=== PATIENT | male | born 1965 | race Caucasian/White ===

== ENCOUNTER 2019-12-03 23:57 | Emergency (ER) | payer OTHER, MEDICAID ==
[~2019-12-03] VITALS: Ht 190.5 cm; Wt 136.1 kg
[~2019-12-03 23:57] MED LIST: GABA600T PO; SERT100T PO; ZOLP5TAB2 PO; [UNRECOGNIZED DRUG - CODE] PO
[2019-12-04] VITALS: BP_SYST 151
[2019-12-04] MEDS ORDERED: TOBRAMYCIN/DEXAMETHASONE Non-Formulary EYE DROPS.SUSP 2.5 ML OP ONE (02:00)
[2019-12-04 02:20] VITALS: BP_SYST 151
== END 2019-12-04 02:20 | disposition home or self-care (01) ==
LOC: SED 23:57
DX: H10.9 Unspecified conjunctivitis (principal); Z79.899 Other long term (current) drug therapy
CPT/HCPCS: 99283

== ENCOUNTER 2020-10-09 14:19 | Emergency (ER) | payer OTHER, MEDICAID, SELFPAY ==
[~2020-10-09] VITALS: Ht 190.5 cm; Wt 141.1 kg
[2020-10-09 14:25] VITALS: BP_SYST 121
[2020-10-09 15:11] LABS: BASOPHILS % (AUTO) 0.2 % (0.0-2.0); EOSINOPHILS # (AUTO) 0.2 K/uL (0.0-0.4); EOSINOPHILS % (AUTO) 2.9 % (0.0-4.0); HEMATOCRIT 36.2 % (36-54); LYMPHOCYTES % (AUTO) 35.4 % (20.5-51.5); MEAN CORPUSCULAR HEMOGLOBIN 29 pg (27-31); MEAN CORPUSCULAR HGB CONC 33 % (32-36); MEAN CORPUSCULAR VOLUME 86 fL (79.0-98.0); MONOCYTES # (AUTO) 0.6 K/uL (0.0-1.0); MONOCYTES % (AUTO) 9.9 % (1.7-9.3); NEUTROPHILS # (AUTO) 2.9 K/uL (1.8-7.7); NEUTROPHILS % (AUTO) 51.6 % (40.0-70.0); PLATELET COUNT (AUTO) 123 K/uL (130-430); RED CELL DISTRIBUTION WIDTH 14.4 % (9.0-15.0); WHITE BLOOD COUNT (AUTO) 5.7 K/uL (4.8-10.8)
[2020-10-09 15:29] LABS: ANION GAP 8 (5-15); CALCIUM 8.8 mg/dL (8.4-11.0); CHLORIDE 103 mmol/L (98-107); CREATININE 1.52 mg/dL (0.55-1.30); GLUCOSE 89 mg/dL (70-99); POTASSIUM 4.3 mmol/L (3.5-5.1); SODIUM SERUM 136 mmol/L (136-145); UREA NITROGEN, BLOOD 13 mg/dL (8-21)
[2020-10-09 15:44] LABS: ALANINE AMINOTRANSFERASE 28 U/L (12-78); ALBUMIN 3.5 g/dL (3.4-4.8); ASPARTATE AMINOTRANSFERASE 16 U/L (10-37); THYROID STIMULATING HORMONE 1.94 uIu/mL (0.36-3.74); TOTAL BILIRUBIN 0.2 mg/dL (0.0-1.0)
[2020-10-09 15:45] LABS: GFR AFRICAN AMERICAN 61 mL/min (>90)
[2020-10-09 16:50] LABS: BILIRUBIN,URINE NEGATIVE (NEGATIVE); BLOOD, URINE NEGATIVE (NEGATIVE); CLARITY/URINE CLEAR (CLEAR); COLOR,URINE YELLOW (YELLOW); GLUCOSE,URINE NEGATIVE (NEGATIVE); KETONES,URINE NEGATIVE (NEGATIVE); LEUKOCYTE ESTERASE ,URINE NEGATIVE (NEGATIVE); NITRITE, URINE NEGATIVE (NEGATIVE); PROTEIN URINE NEGATIVE (NEGATIVE); UROBILINOGEN,URINE 0.2 (0.2-1.0)
[2020-10-09] MEDS ORDERED: MECL-160 PO (17:08)
[2020-10-09 17:40] VITALS: BP_SYST 122
== END 2020-10-09 17:41 | disposition home or self-care (01) ==
LOC: SED 14:19
DX: H81.10 Benign paroxysmal vertigo, unspecified ear (principal); Z79.899 Other long term (current) drug therapy; Z20.822 Contact with and (suspected) exposure to COVID-19
CPT/HCPCS: 36415; 70450-TC; 71045; 76376; 80053; 81003; 82962; 84443; 84484; 85025; 93005; 99285

== ENCOUNTER 2020-12-22 00:22 | Emergency (ER) | payer OTHER, MEDICAID, SELFPAY ==
[~2020-12-22] VITALS: Ht 190.5 cm; Wt 131.5 kg
[~2020-12-22 00:22] MED LIST changes: +MECL-160 PO
[2020-12-22 00:30] VITALS: BP_SYST 139
[2020-12-22] MEDS ORDERED: AMOX-426 PO (02:44)
[2020-12-22] MEDS ORDERED: IBUP-1969 PO (02:44)
[2020-12-22] MEDS ORDERED: AMOXICILLIN/CLAVULANATE POTASSIUM 875 MG TABLET PO ONE (02:45)
[2020-12-22] MEDS ORDERED: IBUPROFEN 600 MG TABLET PO ONE (02:45)
[2020-12-22 03:25] VITALS: BP_SYST 140
== END 2020-12-22 03:25 | disposition home or self-care (01) ==
LOC: SED 00:22
DX: H66.92 Otitis media, unspecified, left ear (principal); Z79.899 Other long term (current) drug therapy
CPT/HCPCS: 99283

== ENCOUNTER 2021-08-16 08:42 | Emergency (ER) | payer OTHER, MEDICAID ==
[~2021-08-16] VITALS: Ht 190.5 cm; Wt 113.4 kg
[~2021-08-16 08:42] MED LIST changes: +AMOX-426 PO; +IBUP-1969 PO
[2021-08-16 08:51] VITALS: BP_SYST 122
[2021-08-16 10:20] LABS: BASOPHILS % (AUTO) 0.3 % (0.0-2.0); EOSINOPHILS # (AUTO) 0.2 K/uL (0.0-0.4); EOSINOPHILS % (AUTO) 2.7 % (0.0-4.0); HEMATOCRIT 41.2 % (36-54); LYMPHOCYTES # (AUTO) 2.8 K/uL (1.0-5.5); MEAN CORPUSCULAR HEMOGLOBIN 30 pg (27-31); MEAN CORPUSCULAR HGB CONC 34 % (32-36); MEAN CORPUSCULAR VOLUME 88 fL (79.0-98.0); MONOCYTES # (AUTO) 0.5 K/uL (0.0-1.0); NEUTROPHILS # (AUTO) 3.4 K/uL (1.8-7.7); PLATELET COUNT (AUTO) 132 K/uL (130-430); RED BLOOD CELL COUNT(AUTO) 4.67 MIL/uL (4.2-6.2); RED CELL DISTRIBUTION WIDTH 12.9 % (9.0-15.0); WHITE BLOOD COUNT (AUTO) 6.9 K/uL (4.8-10.8)
[2021-08-16 10:33] LABS: ANION GAP 10 (5-15); CALCIUM 9.3 mg/dL (8.4-11.0); CHLORIDE 101 mmol/L (98-107); CREATININE 1.39 mg/dL (0.55-1.30); GLUCOSE 76 mg/dL (70-99); POTASSIUM 3.8 mmol/L (3.5-5.1); SODIUM SERUM 136 mmol/L (136-145); UREA NITROGEN, BLOOD 7 mg/dL (8-21)
[2021-08-16 10:43] LABS: GFR AFRICAN AMERICAN 67 mL/min (>90)
[2021-08-16 10:47] LABS: ALANINE AMINOTRANSFERASE 20 U/L (12-78); ALBUMIN 3.9 g/dL (3.4-4.8); AMYLASE 50 U/L (0-100); ASPARTATE AMINOTRANSFERASE 15 U/L (10-37); LACTATE DEHYDROGENASE 185 U/L (85-227); LIPASE 196 U/L (73-393); TOTAL BILIRUBIN 0.6 mg/dL (0.0-1.0)
[2021-08-16 10:55] LABS: C-REACTIVE PROTEIN QUANT < 0.2 mg/dL (0-0.5)
[2021-08-16] MEDS ORDERED: ONDA-8 TL (11:12)
[2021-08-16] MEDS ORDERED: TRAM50TA2 PO (11:12)
[2021-08-16] MEDS ORDERED: IBUP-1971 PO (11:12)
[2021-08-16 12:15] VITALS: BP_SYST 176
== END 2021-08-16 12:15 | disposition home or self-care (01) ==
LOC: SED 08:42
DX: R10.33 Periumbilical pain (principal)
CPT/HCPCS: 36415; 76376; 80053; 81002; 82150; 83605; 83615; 83690; 85025; 86140; 99284

== ENCOUNTER 2022-08-01 21:15 | Inpatient (IN) | payer OTHER, MEDICAID ==
[~2022-08-01] VITALS: Ht 190.5 cm; Wt 131.5 kg
[~2022-08-01 21:15] MED LIST changes: +IBUP-1971 PO; +ONDA-8 TL; +TRAM50TA2 PO
[2022-08-01 21:40] VITALS: BP_SYST 160
[2022-08-01] MEDS ORDERED: MAG HYDROX/AL HYDROX/SIMETH 30 ML, DICYCLOMINE HCL 20 MG, LIDOCAINE VISCOUS 2% 15ML (PO... PO ONE ×3 (22:15)
[2022-08-01] MEDS ORDERED: NACL 0.9% 1,000 ML IV ONE (22:15)
[2022-08-01] MEDS ORDERED: ONDANSETRON HCL 4 MG/2 ML VIAL IVP ONE (22:15)
[2022-08-01] MEDS ORDERED: MORPHINE 4 MG INJ. 4 MG/ML VIAL IVP ONE (22:15)
[2022-08-01 22:21] LABS: BILIRUBIN,URINE NEGATIVE (NEGATIVE); BLOOD, URINE NEGATIVE (NEGATIVE); CLARITY/URINE CLEAR (CLEAR); COLOR,URINE YELLOW (YELLOW); GLUCOSE,URINE NEGATIVE (NEGATIVE); KETONES,URINE NEGATIVE (NEGATIVE); LEUKOCYTE ESTERASE ,URINE NEGATIVE (NEGATIVE); NITRITE, URINE NEGATIVE (NEGATIVE); PROTEIN URINE NEGATIVE (NEGATIVE); UROBILINOGEN,URINE 0.2 (0.2-1.0)
[2022-08-01 22:32] LABS: BASOPHILS # (AUTO) 0.1 K/uL (0.0-0.2); BASOPHILS % (AUTO) 0.6 % (0.0-2.0); EOSINOPHILS # (AUTO) 0.4 K/uL (0.0-0.4); EOSINOPHILS % (AUTO) 4.1 % (0.0-4.0); HEMATOCRIT 36.6 % (36-54); HEMOGLOBIN 12.6 g/dL (14.0-18.0); LYMPHOCYTES # (AUTO) 1.6 K/uL (1.0-5.5); LYMPHOCYTES % (AUTO) 16.9 % (20.5-51.5); MEAN CORPUSCULAR HEMOGLOBIN 30 pg (27-31); MEAN CORPUSCULAR HGB CONC 35 % (32-36); MEAN CORPUSCULAR VOLUME 88 fL (79.0-98.0); MONOCYTES # (AUTO) 0.7 K/uL (0.0-1.0); MONOCYTES % (AUTO) 7.9 % (1.7-9.3); NEUTROPHILS # (AUTO) 6.5 K/uL (1.8-7.7); NEUTROPHILS % (AUTO) 70.5 % (40.0-70.0); PLATELET COUNT (AUTO) 145 K/uL (130-430); RED BLOOD CELL COUNT(AUTO) 4.18 MIL/uL (4.2-6.2); RED CELL DISTRIBUTION WIDTH 13.6 % (9.0-15.0); WHITE BLOOD COUNT (AUTO) 9.2 K/uL (4.8-10.8)
[2022-08-01 22:50] LABS: CALCIUM 8.3 mg/dL (8.4-11.0); CREATININE 1.42 mg/dL (0.55-1.30)
[2022-08-01 22:55] LABS: ALBUMIN 3.3 g/dL (3.4-4.8); TOTAL BILIRUBIN 0.3 mg/dL (0.0-1.0)
[2022-08-02] MEDS ORDERED: HYDROcodone/ACETAMIN 5-325 MG TAB (NORCO/ VICODIN) PO ONE
[2022-08-02] MEDS ORDERED: cefTRIAXone 1 GM in D5W 50 ML IV ONE (01:00)
[2022-08-02] MEDS ORDERED: NACL 0.9% 1,000 ML IV ONE (01:15)
[2022-08-02] MEDS ORDERED: ONDANSETRON HCL 4 MG/2 ML VIAL IVP PRN (01:15)
[2022-08-02] MEDS ORDERED: KETOROLAC TROMETHAMINE 15 MG VIAL IVP PRN (01:15)
[2022-08-02] MEDS ORDERED: BUPR300T55 PO (01:42)
[2022-08-02] MEDS ORDERED: PRO20 PO (01:42)
[2022-08-02] MEDS ORDERED: cefTRIAXone 1 GM VIAL ONE (02:37)
[2022-08-02 02:53] VITALS: BP_SYST 148
[2022-08-02 04:09] VITALS: BP_SYST 148
[2022-08-02 08:00] VITALS: BP_SYST 135
[2022-08-02] MEDS: PIPERACILLIN/TAZO 3.375 GM in NS 50 ML IV SCH (08:58)
[2022-08-02] MEDS ORDERED: buPROPion HCL 75 MG TABLET PO SCH (12:15)
[2022-08-02] MEDS: GABAPENTIN 300 MG CAPSULE PO SCH ×4 (12:15→21:55)
[2022-08-02] MEDS ORDERED: SERTRALINE HCL 50 MG TABLET PO SCH (12:15)
[2022-08-02] MEDS ORDERED: buPROPion HCL 150 MG XL TAB PO SCH (12:15)
[2022-08-02 16:00] VITALS: BP_SYST 139
[2022-08-02] MEDS: NACL 0.9% 1,000 ML IV SCH ×2 (17:16→21:13)
[2022-08-02 19:00] VITALS: BP_SYST 139
[2022-08-02 20:00] VITALS: BP_SYST 137
[2022-08-02] MEDS ORDERED: MELATONIN 5 MG TABLET PO PRN (20:45)
[2022-08-02] MEDS ORDERED: ZOLPIDEM TARTRATE 5 MG TABLET PO SCH (21:00)
[2022-08-02 21:24] LABS: BASOPHILS % (AUTO) 0.6 % (0.0-2.0); EOSINOPHILS # (AUTO) 0.3 K/uL (0.0-0.4); EOSINOPHILS % (AUTO) 3.8 % (0.0-4.0); HEMATOCRIT 35.9 % (36-54); HEMOGLOBIN 12.5 g/dL (14.0-18.0); LYMPHOCYTES # (AUTO) 1.7 K/uL (1.0-5.5); LYMPHOCYTES % (AUTO) 21.6 % (20.5-51.5); MEAN CORPUSCULAR HEMOGLOBIN 30 pg (27-31); MEAN CORPUSCULAR HGB CONC 35 % (32-36); MEAN CORPUSCULAR VOLUME 87 fL (79.0-98.0); MONOCYTES # (AUTO) 0.7 K/uL (0.0-1.0); MONOCYTES % (AUTO) 8.8 % (1.7-9.3); NEUTROPHILS # (AUTO) 5.1 K/uL (1.8-7.7); NEUTROPHILS % (AUTO) 65.2 % (40.0-70.0); PLATELET COUNT (AUTO) 128 K/uL (130-430); RED BLOOD CELL COUNT(AUTO) 4.13 MIL/uL (4.2-6.2); RED CELL DISTRIBUTION WIDTH 13.4 % (9.0-15.0); WHITE BLOOD COUNT (AUTO) 7.9 K/uL (4.8-10.8)
[2022-08-02 21:43] LABS: ALBUMIN 3.2 g/dL (3.4-4.8); CALCIUM 8.3 mg/dL (8.4-11.0); CREATININE 1.36 mg/dL (0.55-1.30); TOTAL BILIRUBIN 0.7 mg/dL (0.0-1.0)
[2022-08-02] MEDS: traZODone HCL 50 MG TABLET (DESYREL) PO SCH (21:55)
[2022-08-03] VITALS (8 sets, daily range): BP systolic 113–133
[2022-08-03 04:43] LABS: BASOPHILS % (AUTO) 0.4 % (0.0-2.0); EOSINOPHILS # (AUTO) 0.3 K/uL (0.0-0.4); EOSINOPHILS % (AUTO) 3.7 % (0.0-4.0); HEMATOCRIT 35.7 % (36-54); HEMOGLOBIN 12.1 g/dL (14.0-18.0); LYMPHOCYTES # (AUTO) 1.3 K/uL (1.0-5.5); LYMPHOCYTES % (AUTO) 19.5 % (20.5-51.5); MEAN CORPUSCULAR HEMOGLOBIN 30 pg (27-31); MEAN CORPUSCULAR HGB CONC 34 % (32-36); MEAN CORPUSCULAR VOLUME 88 fL (79.0-98.0); MONOCYTES # (AUTO) 0.7 K/uL (0.0-1.0); MONOCYTES % (AUTO) 9.6 % (1.7-9.3); NEUTROPHILS # (AUTO) 4.6 K/uL (1.8-7.7); NEUTROPHILS % (AUTO) 66.8 % (40.0-70.0); PLATELET COUNT (AUTO) 123 K/uL (130-430); RED BLOOD CELL COUNT(AUTO) 4.06 MIL/uL (4.2-6.2); RED CELL DISTRIBUTION WIDTH 13.5 % (9.0-15.0); WHITE BLOOD COUNT (AUTO) 6.8 K/uL (4.8-10.8)
[2022-08-03 05:12] LABS: ALBUMIN 3.1 g/dL (3.4-4.8); CALCIUM 8.1 mg/dL (8.4-11.0); CREATININE 1.37 mg/dL (0.55-1.30); TOTAL BILIRUBIN 0.7 mg/dL (0.0-1.0)
[2022-08-03 05:21] LABS: PROTHROMBIN TIME 10.2 SECS (9.5-12.5)
[2022-08-03] MEDS ORDERED: MELATONIN 5 MG TABLET PO PRN (07:34)
[2022-08-03] MEDS: GABAPENTIN 300 MG CAPSULE PO SCH ×3 (09:00→17:00)
[2022-08-03] MEDS: FLUoxetine HCL 20 MG CAPSULE (PROzac) PO SCH (09:00)
[2022-08-03] MEDS: buPROPion HCL 150 MG XL TAB PO SCH (09:00)
[2022-08-03] MEDS: NACL 0.9% 1,000 ML IV SCH ×2 (09:24→21:24)
[2022-08-03] MEDS: PIPERACILLIN/TAZO 3.375 GM in NS 50 ML IV SCH (09:24)
[2022-08-03] MEDS: PIPERACILLIN/TAZO 3.375/DEX-IS 50 ML IV SCH ×2 (15:11→21:23)
[2022-08-03] MEDS ORDERED: ONDANSETRON HCL 4 MG/2 ML VIAL ONE (18:27)
[2022-08-03] MEDS ORDERED: HYDROmorphone 2 MG/ML VIAL ONE (18:27)
[2022-08-03] MEDS ORDERED: MIDAZOLAM HCL 2 MG/2 ML VIAL (VERSED) ONE (18:27)
[2022-08-03] MEDS ORDERED: GLYCOPYRROLATE 0.2 MG/ML VIAL ONE (18:27)
[2022-08-03] MEDS ORDERED: SEVOFLURANE 15 MIN GAS INH ONE (18:27)
[2022-08-03] MEDS ORDERED: ROCURONIUM BROMIDE 10 MG/ML (ZEMURON) ONE (18:27)
[2022-08-03] MEDS ORDERED: NEOSTIGMINE METHYLSULFATE 1 MG/ML, 10 ML VIAL ONE (18:27)
[2022-08-03] MEDS ORDERED: PROPOFOL 200MG/ 20ML VIAL (DIPRIVAN) IV ONE (18:27)
[2022-08-03] MEDS ORDERED: DEXAMETHASONE SOD PHOSPHATE 4 MG/ML VIAL ONE (18:27)
[2022-08-03] MEDS ORDERED: METOCLOPRAMIDE HCL 10 MG/2 ML VIAL ONE (18:27)
[2022-08-03] MEDS ORDERED: NS IRRIG SOLN 1000 ML IR ONE (18:27)
[2022-08-03] MEDS ORDERED: LR 1,000 ML IV.SOLN IV ONE (18:27)
[2022-08-03] MEDS ORDERED: HYDROmorphone 1 MG/ML INJ. CARTRIDGE IVP PRN ×2 (18:30→19:45)
[2022-08-03] MEDS ORDERED: HYDROcodone/ACETAMIN 5-325 MG TAB (NORCO/ VICODIN) PO PRN (18:30)
[2022-08-03] MEDS ORDERED: NALOXONE HCL 0.4 MG/ML AMP (NARCAN) IVP PRN (19:45)
[2022-08-03] MEDS ORDERED: ONDANSETRON HCL 4 MG/2 ML VIAL IVP PRN (19:45)
[2022-08-03] MEDS: traZODone HCL 50 MG TABLET (DESYREL) PO SCH (21:00)
[2022-08-04 00:01] VITALS: BP_SYST 121
[2022-08-04] MEDS: NACL 0.9% 1,000 ML IV SCH (02:41)
[2022-08-04] MEDS: PIPERACILLIN/TAZO 3.375/DEX-IS 50 ML IV SCH ×3 (02:44→15:00)
[2022-08-04 08:00] VITALS: BP_SYST 139
[2022-08-04] MEDS ORDERED: HYDR-3917 PO (08:11)
[2022-08-04] MEDS: buPROPion HCL 150 MG XL TAB PO SCH (09:16)
[2022-08-04] MEDS: GABAPENTIN 300 MG CAPSULE PO SCH ×2 (09:16→13:00)
[2022-08-04] MEDS: FLUoxetine HCL 20 MG CAPSULE (PROzac) PO SCH (09:16)
[2022-08-04 11:33] VITALS: BP_SYST 137
[2022-08-04 16:39] VITALS: BP_SYST 130
== END 2022-08-04 17:30 | disposition home health service (06) | DRG 417 ==
LOC: SED 21:15 → SMU 08-02 01:13
PROVIDERS: ADMIT Family Medicine; ATTEND Family Medicine
PROC: 5A09357 Assistance with Respiratory Ventilation, Less than 24 Consecutive Hours, Continuous Positive Airway Pressure (ICD-10-PCS; 2022-08-02)
PROC: 0DNU4ZZ Release Omentum, Percutaneous Endoscopic Approach (ICD-10-PCS; 2022-08-03)
PROC: 5A09457 Assistance with Respiratory Ventilation, 24-96 Consecutive Hours, Continuous Positive Airway Pressure (ICD-10-PCS; 2022-08-03)
PROC: 0FT44ZZ Resection of Gallbladder, Percutaneous Endoscopic Approach (ICD-10-PCS; principal; 2022-08-03 18:28)
DX: K80.00 Calculus of gallbladder with acute cholecystitis without obstruction (principal); K85.90 Acute pancreatitis without necrosis or infection, unspecified; N17.0 Acute kidney failure with tubular necrosis; F32.9 Major depressive disorder, single episode, unspecified; E66.01 Morbid (severe) obesity due to excess calories; F41.9 Anxiety disorder, unspecified; Z60.2 Problems related to living alone; N18.9 Chronic kidney disease, unspecified; Z20.822 Contact with and (suspected) exposure to COVID-19; K66.0 Peritoneal adhesions (postprocedural) (postinfection); G47.33 Obstructive sleep apnea (adult) (pediatric); Z68.36 Body mass index [BMI] 36.0-36.9, adult; Z79.899 Other long term (current) drug therapy
CPT/HCPCS: 36415; 71045; 76376; 76705; 78226; 80053; 81003; 83690; 85025; 85610-TC; 86886; 86900; 86901; 87040; 87081; 88304; 93005; 94660; 94760; 96361; 96365; 96375; 99285; A9537; C1727; J0696; J1100; J1170; J2001; J2270; J2405; J2543; J2704; J2710; J2765; J3465; J3490; J7030; J7120

== ENCOUNTER 2022-11-19 15:13 | Emergency (ER) | payer OTHER, MEDICAID ==
[~2022-11-19] VITALS: Ht 190.5 cm; Wt 111.1 kg
[~2022-11-19 15:13] MED LIST changes: +BUPR300T55 PO; +HYDR-3917 PO; +PRO20 PO
[2022-11-19 15:55] VITALS: BP_SYST 132; PULSE 67; RESP 19; TEMP 97.4; O2SAT 96
[2022-11-19] MEDS ORDERED: NACL 0.9% 1,000 ML IV ONE (16:30)
[2022-11-19 16:59] LABS: BASOPHILS % (AUTO) 0.8 % (0.0-2.0); EOSINOPHILS # (AUTO) 0.3 K/uL (0.0-0.4); EOSINOPHILS % (AUTO) 5.1 % (0.0-4.0); HEMATOCRIT 38.3 % (36-54); HEMOGLOBIN 12.6 g/dL (14.0-18.0); LYMPHOCYTES # (AUTO) 2.1 K/uL (1.0-5.5); LYMPHOCYTES % (AUTO) 35.3 % (20.5-51.5); MEAN CORPUSCULAR HEMOGLOBIN 28 pg (27-31); MEAN CORPUSCULAR HGB CONC 33 % (32-36); MEAN CORPUSCULAR VOLUME 86 fL (79.0-98.0); MONOCYTES # (AUTO) 0.6 K/uL (0.0-1.0); MONOCYTES % (AUTO) 9.3 % (1.7-9.3); NEUTROPHILS % (AUTO) 49.5 % (40.0-70.0); PLATELET COUNT (AUTO) 133 K/uL (130-430); RED BLOOD CELL COUNT(AUTO) 4.46 MIL/uL (4.2-6.2); RED CELL DISTRIBUTION WIDTH 14.4 % (9.0-15.0); WHITE BLOOD COUNT (AUTO) 6.1 K/uL (4.8-10.8)
[2022-11-19] MEDS ORDERED: MORPHINE 4 MG INJ. 4 MG/ML VIAL IVP ONE ×2 (17:00→20:45)
[2022-11-19] MEDS ORDERED: ONDANSETRON HCL 4 MG/2 ML VIAL IVP ONE (17:00)
[2022-11-19 17:17] LABS: ALBUMIN 3.6 g/dL (3.4-4.8); CALCIUM 8.6 mg/dL (8.4-11.0); CREATININE 1.6 mg/dL (0.55-1.30); PHOSPHORUS 3.2 mg/dL (2.7-4.5); POTASSIUM 3.9 mmol/L (3.5-5.1); TOTAL BILIRUBIN 0.4 mg/dL (0.0-1.0); TOTAL PROTEIN, SERUM 7.6 g/dL (6.4-8.3)
[2022-11-19] MEDS ORDERED: HYDR-3927 PO (21:30)
[2022-11-19] MEDS ORDERED: LOPE2CAP PO (21:30)
[2022-11-19] MEDS ORDERED: LOPERAMIDE HCL 2 MG CAPSULE PO ONE (21:30)
[2022-11-19] MEDS ORDERED: DICY10CA13 PO (21:51)
[2022-11-19 23:12] VITALS: BP_SYST 125; PULSE 58; RESP 19; TEMP 98.3; O2SAT 98
== END 2022-11-19 23:12 | disposition home or self-care (01) ==
LOC: SED 15:13
DX: R10.32 Left lower quadrant pain (principal); R19.7 Diarrhea, unspecified; E78.5 Hyperlipidemia, unspecified; Z79.899 Other long term (current) drug therapy
CPT/HCPCS: 99285; 74176; 96374; 96361; 96375; 80053; 83690; 83735; 84100; 85025; 36415; 76376; 96376; J2405; J2270; J7030

== ENCOUNTER 2024-01-16 13:39 | Emergency (ER) | payer OTHER, MEDICAID ==
[~2024-01-16] VITALS: Ht 190.5 cm; Wt 113.4 kg
[~2024-01-16 13:39] MED LIST changes: +DICY-14 PO; +HYDR-3927 PO; +LOPE2CAP PO; -MECL-160 PO; +MECL-292 PO
[2024-01-16 13:48] VITALS: BP_SYST 146; PULSE 64; RESP 18; TEMP 98.3; O2SAT 97
[2024-01-16 14:53] LABS: BASOPHILS # (AUTO) 0.1 K/uL (0.0-0.2); BASOPHILS % (AUTO) 0.6 % (0.0-2.0); EOSINOPHILS # (AUTO) 0.1 K/uL (0.0-0.4); EOSINOPHILS % (AUTO) 0.5 % (0.0-4.0); HEMATOCRIT 35.6 % (36-54); HEMOGLOBIN 12.3 g/dL (14.0-18.0); LYMPHOCYTES # (AUTO) 1.1 K/uL (1.0-5.5); LYMPHOCYTES % (AUTO) 11.3 % (20.5-51.5); MEAN CORPUSCULAR HEMOGLOBIN 30 pg (27-31); MEAN CORPUSCULAR HGB CONC 35 % (32-36); MEAN CORPUSCULAR VOLUME 87 fL (79.0-98.0); MONOCYTES # (AUTO) 0.8 K/uL (0.0-1.0); MONOCYTES % (AUTO) 8.4 % (1.7-9.3); NEUTROPHILS # (AUTO) 7.9 K/uL (1.8-7.7); NEUTROPHILS % (AUTO) 79.2 % (40.0-70.0); PLATELET COUNT (AUTO) 213 K/uL (130-430); RED BLOOD CELL COUNT(AUTO) 4.12 MIL/uL (4.2-6.2); RED CELL DISTRIBUTION WIDTH 14.1 % (9.0-15.0); WHITE BLOOD COUNT (AUTO) 9.9 K/uL (4.8-10.8)
[2024-01-16] MEDS: NACL 0.9% 1,000 ML IV ONE (15:13)
[2024-01-16] MEDS: ONDANSETRON HCL 4 MG/2 ML VIAL IVP ONE (15:14)
[2024-01-16] MEDS: PANTOPRAZOLE SODIUM 40 MG/VIAL (PROTONIX) IVP ONE (15:14)
[2024-01-16] MEDS: KETOROLAC TROMETHAMINE 15 MG VIAL IVP ONE (15:14)
[2024-01-16 15:18] LABS: ALBUMIN 3.6 g/dL (3.4-4.8); BILIRUBIN,DIRECT 0.2 mg/dL (0.0-0.3); CALCIUM 9.1 mg/dL (8.4-11.0); CREATININE 1.43 mg/dL (0.55-1.30); POTASSIUM 3.7 mmol/L (3.5-5.1); TOTAL BILIRUBIN 0.6 mg/dL (0.0-1.0); TOTAL PROTEIN, SERUM 7.6 g/dL (6.4-8.3)
[2024-01-16] MEDS ORDERED: ONDA-8 TL (18:17)
[2024-01-16] MEDS ORDERED: OMEP40CA20 PO (18:17)
[2024-01-16 18:36] VITALS: BP_SYST 137; PULSE 68; RESP 17; TEMP 98.7; O2SAT 98
== END 2024-01-16 18:37 | disposition home or self-care (01) ==
LOC: SED 13:39
DX: K21.9 Gastro-esophageal reflux disease without esophagitis (principal); K29.20 Alcoholic gastritis without bleeding; R10.13 Epigastric pain; R11.10 Vomiting, unspecified; E78.5 Hyperlipidemia, unspecified; F32.A Depression, unspecified; F41.9 Anxiety disorder, unspecified; K58.9 Irritable bowel syndrome, unspecified; Z79.899 Other long term (current) drug therapy
CPT/HCPCS: 99284; 96374; 96375; 96361; 80076; 80048; 83690; 85025; 36415; 93005; J1885; J2405; J2470; J7030